=== PATIENT | female | born 1940 | race African-American/Black ===

== ENCOUNTER 2016-12-10 08:50 | Inpatient (IN) | payer MEDICARE ==
--- NOTE | ~2016-12-10 | HP ---
History And Physical [place] [id number] [facility] [place]. [address] NAME: EDWARD PADRON : 41 STATUS : ADM IN PAT#: [id number] AGE: 76 ADM/REG DATE : 12/10/16 MR#: [id number] REPORT SERV DATE: 12/10/16 DICTATED BY: TERI CALI DATE: 12/10/16 REPORT STATUS : Draft TRANSCRIBED BY: MODL DATE: 12/10/16 DATE OF ADMISSION: 12/10/2016 NEPHROLOGY ADMISSION NOTE CHIEF COMPLAINT: Shortness of breath. HISTORY OF PRESENT ILLNESS: The patient is a pleasant 76-year-old, female with past medical history of end-stage renal disease, on hemodialysis Saturday, Saturday, [facility] [address], who presents with worsening shortness of breath. Her son unfortunately recently , and she had several visitors over her house. She denies any change in her usual drinking habits over the weekend. She became progressively more short of breath and eventually called EMS. On arrival to the ER, blood pressure was 197/160 with a pulse rate of 123. Her chest x-rays showed pulmonary edema. She was placed on BiPAP and gas which showed mixed respiratory and metabolic acidosis. Her cardiac enzymes were negative. She denies fever, chest pain, or other systemic complaints at home. Her last dialysis was Saturday. Workup included labs which showed a white blood cell count 28,000 with a left shift. EKG showed no acute changes from previous. Presently, she is being seen on dialysis, comfortable on BiPAP with stable vital signs. The patient also states that she began having emesis at some point overnight. She had several episodes of previously ingested food. No blood or bile. PAST MEDICAL HISTORY: 1. End-stage renal disease, on hemodialysis Saturday, Saturday, Saturday at [address] via left upper extremity AV fistula. 2. Diabetes mellitus type 2. 3. Hypertension. 4. Coronary artery disease. PAST SURGICAL HISTORY: Left upper extremity AV fistula. HOME MEDICATIONS: 1. Norvasc 5 q. day. 2. Aspirin 81 q. day. 3. Bumex 2 q. day. 4. Calcium carbonate 6 tablets with meals. 5. Cinacalcet 30 q. day. 6. Neurontin 100 twice a day. 7. Levemir insulin 25 units subcu twice a day. 8. Isosorbide mononitrate 60 q. day. 9. Lisinopril 40 twice a day. 10.Lorazepam 0.5 q. day. 11.Lorazepam 1 mg q.h.s. 12.Temazepam 15 mg q.h.s. ALLERGIES: INCLUDE BENADRYL, LEVAQUIN, AND PENICILLIN. History And Physical [address] [address] NAME: EDWARD PADRON : 41 STATUS : ADM IN [facility]#: [id number] AGE: 76 ADM/REG DATE : 12/10/16 MR#: [id number] REPORT SERV DATE: 12/10/16 DICTATED BY: TERI CALI DATE: 12/10/16 REPORT STATUS : Draft TRANSCRIBED BY: JD DATE: 12/10/16 SOCIAL HISTORY: No tobacco, alcohol, or illicit drug use. FAMILY HISTORY: No history of renal disease. No other documented medical problems. REVIEW OF SYSTEMS: All systems reviewed, negative excluding those mentioned and highlighted in history of present illness. PHYSICAL EXAMINATION: VITAL SIGNS: Blood pressure 132/61, temperature 97.2, pulse 120s, respiratory rate 22, and oxygen saturation 100%. GENERAL: This is an acute on chronically ill elderly female resting on BiPAP in no overt distress. HEENT: Normocephalic, atraumatic. Oropharynx is clear. No exudate. NECK: Supple. No JVD. No thyromegaly. No carotid bruits. Trachea midline. No stridor. CARDIOVASCULAR: Tachycardic. S1, S2. No rubs or gallops. Point of maximal impulse nondisplaced. Respiratory: Coarse breath sounds anteriorly with a few rhonchi and wheezes with mild tachypnea. No accessory muscles in use. GASTROINTESTINAL: Abdomen is soft, nontender, nondistended. No hepatosplenomegaly appreciated. EXTREMITIES: No cyanosis or clubbing. She does have 1 to 2+ pretibial edema. LYMPHATICS: No supraclavicular, cervical, inguinal, or axillary adenopathy. SKIN: No rash or breakdown. Normal turgor. NEUROLOGIC: Cranial nerves 2 through 12 grossly intact. Motor sensory examinations within normal limits. LABORATORIES AND DIAGNOSTIC DATA: WBC 23.9, hemoglobin 11.6, hematocrit 35.5, platelets 210. Lactate 0.9. PH 7.21, pCO2 is 47, pO2 is 421 on 100%. Sodium 136, potassium 5.3, chloride 102, bicarb 21, BUN 70, creatinine 10.8, and glucose 232. Chest x-ray shows moderate volume overload or pulmonary edema. ASSESSMENT: 1. Hypoxemic respiratory failure secondary to pulmonary edema. 2. Leukocytosis with left shift ? reactive from #1 versus infectious process. 3. End-stage renal disease, on hemodialysis Saturday, Saturday, and Saturday. 4. Hypertension. 5. Diabetes mellitus type 2. 6. Metabolic and respiratory acidosis. 7. Nausea and vomiting. PLAN: 1. Hemodialysis today urgently for volume overload. I have seen her on dialysis and she is tolerating her treatment well at this time. 2. Wean off BiPAP and ask Pulmonary to see. History And Physical [address] [place]. [address] NAME: EDWARD PADRON : 41 STATUS : ADM IN [facility]#: [id number] AGE: 76 ADM/REG DATE : 12/10/16 MR#: [id number] REPORT SERV DATE: 12/10/16 DICTATED BY: TERI CALI DATE: 12/10/16 REPORT STATUS : Draft TRANSCRIBED BY: JD DATE: 12/10/16 3. Cultures and empiric antibiotics with marked white blood cell count. 4. Treat blood pressure with home medications and home insulin therapy. 5. We will follow in IMCU for now until off BiPAP. RUSS/JD Teri Cali M.D. / [id number] CC: Teri Cali M.D.
--- NOTE | ~2016-12-10 | CN ---
Consultation Report [facility] [address] [place]. [address] NAME: EDWARD PADRON : 41 STATUS : ADM IN [facility]#: [id number] AGE: 76 ADM/REG DATE : 12/10/16 MR#: [id number] REPORT SERV DATE: 12/10/16 DICTATED BY: CHRISTOPHER MARTINEZ DATE: 12/10/16 REPORT STATUS : Draft TRANSCRIBED BY: MODL DATE: 12/10/16 CONSULTATION DATE OF CONSULTATION: 12/10/2016 HISTORY OF PRESENT ILLNESS: A 76-year-old female whom we are consulted by the Nephrology group because of acute hypoxic respiratory failure. The patient has not missed dialysis, but she is a hemodialysis patient on Saturday, Saturday, and Saturday. Recently buried her son last week. She states she started getting short of breath over the past day and came to the hospital. She was found to be hypoxic with emergency room O2 saturation at 88% and blood pressure is really high at 197/159. The patient denies any fevers, but did have a dry cough, but no chest pain. She did vomit before she came to the hospital. She was put on 100% nonrebreather in the ER and converted that over to BiPAP. When I entered the room, she was on BiPAP 16/6 with FiO2 of 40%. Her O2 saturations were good. This was in IMCU after she had dialysis. In dialysis today, her pre and post weight difference was 2-1/2 kg and they took off a gross UF of 3.85 L. She states that her breathing is doing much better now and her blood pressure is much better as well. REVIEW OF SYSTEMS: No fevers or chills. No chest pain. No belly pain or diarrhea. She does have some mild leg swelling. PAST MEDICAL HISTORY: End-stage renal disease, type 2 diabetes, hypertension, and coronary artery disease. MEDICATIONS AT HOME: Reviewed. ALLERGIES: BENADRYL, LEVAQUIN, AND PENICILLIN. SOCIAL HISTORY: No tobacco, alcohol, or illicit drugs. FAMILY HISTORY: No history of kidney diseases. PHYSICAL EXAMINATION: VITAL SIGNS: Per nursing flow sheet. GENERAL: No acute distress. Alert. NEURO: GCS 15. HEENT: Normocephalic, atraumatic. BiPAP on. NECK: Trachea midline. HEART: Regular rate and rhythm. No murmurs. LUNGS: Coarse breath sounds bilaterally. No wheezes. No accessory muscle use. Bi-level setting 16/6 with FiO2 of 40% and O2 saturation 100%. Tidal volumes are estimated to be around 350 on the bi-level machine. GI: Soft, nontender, and nondistended. Consultation Report [place] [address] [place]. [address] NAME: EDWARD PADRON : 41 STATUS : ADM IN PAT#: [id number] AGE: 76 ADM/REG DATE : 12/10/16 MR#: [id number] REPORT SERV DATE: 12/10/16 DICTATED BY: CHRISTOPHER MARTINEZ DATE: 12/10/16 REPORT STATUS : Draft TRANSCRIBED BY: MODL DATE: 12/10/16 EXTREMITIES: +1 bilateral leg edema. SKIN: No obvious rash. LABORATORY DATA: Labs and radiology studies reviewed. ASSESSMENT AND PLAN: 1. Acute hypoxic respiratory failure. 2. Acute pulmonary edema. 3. End-stage renal disease. 4. Hypertensive urgency. The patient is status post dialysis today and took off 2-1/2 kg of weight. She is doing much better in terms of her blood pressure and her overall respiratory symptoms. We will trial her off BiPAP and just put on a nasal cannula to see if she tolerates this. She can use the BiPAP as needed for a goal O2 saturation of 92% to 94%. CEP/MODL Christopher Martinez DO / [id number] CC: Teri Dalal M.D.
[2016-12-10 08:38] LABS: ER CBC TAT 0 Hrs 08 Mins; HEMATOCRIT 35.5 % (36.0-48.0); HEMOGLOBIN 11.6 g/dL (12.0-16.0); MANUAL DIFF YES %; MEAN CORPUS HGB CONC 32.7 g/dL (32.0-36.0); MEAN CORPUSCULAR VOLUME 91.7 fL (80-100); MEAN PLATELET VOLUME 9.9 fL (9.2-13.0); PLATELET COUNT 210 10/3/uL (150-400); RBC DISTRIBUTION WIDTH 13.3 % (12.0-16.0); RED CELL COUNT 3.87 10/6/uL (4.0-5.6); WHITE BLOOD CELLS 23.9 10/3/uL (4.5-10.5)
[~2016-12-10 08:50] MED LIST: AMARYL2 PO; APRES25 PO; APRES50 PO; ARANESP60 IV; ASAB PO; ATV.5 PO; ATV1 PO; BUM2 PO; CALCIUM CARBONATE PO; CARD90 PO; CAT2 PO; CIP5 PO; COREG12 PO; COREG25 PO; COREG6 PO; CUBICIN500 MG IV; DEXILANT PO; DIOV80 PO; DIOVAN HCT320 MG/25 PO; DIOVAN320 MG PO; EXFORGE1 TA1 PO; EXFORGE1 TA3 PO; FLEX PO; GLUCOPHAGE1000 MG PO; HALF81 PO; HUMALOG SC; IMDUR30 PO; IMDUR60 PO; KLOR-CON20 MEQ PO; L20 PO; L40 PO; LANTUS FOR SC; LANTUS SC; LEVEMIR SC; LISINOPRIL40 MG PO; MAGOX4 PO; MELA3 PO; METHOC500B PO; MIRALAXPKT PO; MULTIPLE VIT PO; NEUR100 PO; NITROBID2 % TOP; NORCO1 TA1 PO; NORV10 PO; NORV5 PO; NOVOLOG SC; P10 PO; PCET PO; PREVALITE4 G1 PO; PRIN10 PO; PRIN20 PO; PROTONIX PO; REST15 PO; SENSIPAR30 M1 PO; SEPTRA DS1 TAB PO; T3 PO; TAMIFLU PO; TUMSROLL PO; TYLENOL ARTH650 MG PO; ULTRAM50 PO; V5 PO; VITD PO; VOLTAREN1 % TOP; ZESTRIL40 MG PO; ZITHROMAX500 MG PO; [UNRECOGNIZED DRUG - REMARK]
[2016-12-10 09:11] LABS: BAND NEUTROPHILS 3 %; ER DIFF TAT 0 Hrs 41 Mins; LYMPHOCYTES 4 %; LYMPHOCYTES ABSOLUTE (CALC) 0.96 10/3/uL (0.67-4.30); MONOCYTES 5 %; NEUTROPHILS ABSOLUTE (CALC) 21.75 10/3/uL (2.02-8.40); PLATELET ESTIMATE ADQ (ADEQUATE); SEGMENTED NEUTROPHIL (0) 88 %; TOTAL NUCLEATED CELLS 100
[2016-12-10 09:14] LABS: RBC MORPHOLOGY NORM (NORMAL)
[2016-12-10 09:26] LABS: BUN (BLOOD UREA NITROGEN) 70 MG/DL (6-23); CALCIUM, SERUM 8.3 MG/DL (8.5-10.4); CHEST PAIN PROFILE TAT 0 Hrs 15 Mins; CHLORIDE, SERUM 102 MMOL/L (96-112); CO2 (CARBON DIOXIDE) 21 MMOL/L (24-34); GFR AFRICAN AMERICAN 4 ML/MIN (>=60); GFR NON AFRICAN AMERICAN 3 ML/MIN (>=60); GLUCOSE, SERUM 232 MG/DL (60-99); POTASSIUM, SERUM 5.3 MMOL/L (3.5-5.3); SODIUM, SERUM 136 MMOL/L (135-148); TROPONIN I 0.02 NG/ML (<0.05)
[2016-12-10] MEDS ORDERED: NORV5 PO (09:31)
[2016-12-10] MEDS ORDERED: ATV1 PO (09:33)
[2016-12-10] MEDS ORDERED: DIOVAN320 MG PO (09:35)
[2016-12-10] MEDS ORDERED: LEVEMIR SC (09:36)
[2016-12-10] MEDS ORDERED: IMDUR60 PO (09:36)
[2016-12-10] MEDS ORDERED: REST15 PO (09:37)
[2016-12-10 10:24] LABS: ALLENS TEST Pos; CARBOXYHEMOGLOBIN 0.4 % (0-3); HCO3 (ACTUAL BICARBONATE) 18.5 MEQ/L (23-27); HEMOBLOGIN CONTENT 11.9 G/DL (12-16); INSTRUMENT SERIAL # 8087; METHEMOGLOBIN 0.2 % (0-3); O2 CONTENT 17.7 VOL% (18-24); OPERATOR ID 14335; PCO2 (CO2 TENSION) 47 MMHG (35-45); PO2 (O2 TENSION) 421 MMHG (79-93); SAMPLE Arterial; pH 7.21 (7.37-7.43)
[2016-12-10 12:48] LABS: INTERNATIONAL NORMAL RATI 1.1 UNITS (-); PROTIME (NOT ORD) 14.3 SEC (12.0-14.5)
[2016-12-10 12:49] LABS: PARTIAL THROMBO TIME 26.3 SEC (22.5-37.2)
[2016-12-10 14:54] LABS: PROCALCITONIN 0.28 ng/mL (<0.5)
[2016-12-11 04:32] LABS: BASOPHILS 0.2 %; BASOPHILS ABSOLUTE 0.02 10/3/uL (0.0-0.16); EOSINOPHILS ABSOLUTE 0.13 10/3/uL (0.0-0.53); HEMATOCRIT 31.8 % (36.0-48.0); HEMOGLOBIN 10.2 g/dL (12.0-16.0); IMMATURE GRANULOCYTES 0.3 %; IMMATURE GRANULOCYTES ABSOLUTE 0.04 10/3/uL (0.0-0.11); LYMPHOCYTES 12.8 %; LYMPHOCYTES ABSOLUTE 1.62 10/3/uL (0.67-4.30); MANUAL DIFF NO %; MEAN CORPUS HGB CONC 32.1 g/dL (32.0-36.0); MEAN CORPUSCULAR HEMOGLOB 29.1 pg (26.0-34.0); MEAN CORPUSCULAR VOLUME 90.9 fL (80-100); MONOCYTES 5.9 %; MONOCYTES ABSOLUTE 0.74 10/3/uL (0.21-1.20); NEUTROPHILS 79.8 %; NEUTROPHILS ABSOLUTE 10.07 10/3/uL (2.02-8.40); PLATELET COUNT 208 10/3/uL (150-400); RBC DISTRIBUTION WIDTH 13.7 % (12.0-16.0); WHITE BLOOD CELLS 12.6 10/3/uL (4.5-10.5)
[2016-12-11 04:50] LABS: ALBUMIN 2.9 G/DL (3.5-5.0); CALCIUM, SERUM 8.8 MG/DL (8.5-10.4); CHLORIDE, SERUM 101 MMOL/L (96-112); POTASSIUM, SERUM 4.6 MMOL/L (3.5-5.3); SODIUM, SERUM 139 MMOL/L (135-148); VANCOMYCIN TROUGH 17.8 MCG/ML (10.0-20.0)
[2016-12-11 04:54] LABS: BUN (BLOOD UREA NITROGEN) 43 MG/DL (6-23); CO2 (CARBON DIOXIDE) 26 MMOL/L (24-34); CREATININE 8.09 MG/DL (0.55-1.02); GFR AFRICAN AMERICAN 5 ML/MIN (>=60); GFR NON AFRICAN AMERICAN 4 ML/MIN (>=60); GLUCOSE, SERUM 77 MG/DL (60-99); PHOSPHORUS, SERUM 5.4 MG/DL (2.5-4.5)
[2016-12-12 05:27] LABS: BASOPHILS 0.5 %; BASOPHILS ABSOLUTE 0.05 10/3/uL (0.0-0.16); EOSINOPHILS 1.9 %; HEMOGLOBIN 10.3 g/dL (12.0-16.0); IMMATURE GRANULOCYTES 0.4 %; IMMATURE GRANULOCYTES ABSOLUTE 0.04 10/3/uL (0.0-0.11); LYMPHOCYTES 22.4 %; MANUAL DIFF NO %; MEAN CORPUS HGB CONC 31.2 g/dL (32.0-36.0); MEAN CORPUSCULAR HEMOGLOB 29.6 pg (26.0-34.0); MEAN CORPUSCULAR VOLUME 94.8 fL (80-100); MEAN PLATELET VOLUME 10.1 fL (9.2-13.0); NEUTROPHILS 61.8 %; NEUTROPHILS ABSOLUTE 6.64 10/3/uL (2.02-8.40); PLATELET COUNT 210 10/3/uL (150-400); RBC DISTRIBUTION WIDTH 14.1 % (12.0-16.0); RED CELL COUNT 3.48 10/6/uL (4.0-5.6); WHITE BLOOD CELLS 10.7 10/3/uL (4.5-10.5)
[2016-12-12 05:50] LABS: ALBUMIN 3.1 G/DL (3.5-5.0); BUN (BLOOD UREA NITROGEN) 28 MG/DL (6-23); CALCIUM, SERUM 8.6 MG/DL (8.5-10.4); CHLORIDE, SERUM 103 MMOL/L (96-112); CO2 (CARBON DIOXIDE) 25 MMOL/L (24-34); CREATININE 6.64 MG/DL (0.55-1.02); GFR AFRICAN AMERICAN 6 ML/MIN (>=60); GFR NON AFRICAN AMERICAN 6 ML/MIN (>=60); GLUCOSE, SERUM 63 MG/DL (60-99); PHOSPHORUS, SERUM 3.7 MG/DL (2.5-4.5); POTASSIUM, SERUM 4.6 MMOL/L (3.5-5.3); SODIUM, SERUM 137 MMOL/L (135-148)
[2016-12-12] MEDS ORDERED: NORCO1 TA1 PO (15:11)
[2017-01-21] MEDS ORDERED: *UNABLE1 (06:10)
== END 2016-12-12 16:30 | disposition home or self-care (01) | DRG 189 ==
LOC: ER 08:50 → IMCU 09:56
PROVIDERS: Emergency Medicine; Internal Medicine Nephrology
PROC: 5A1D60Z (ICD-10-PCS; principal; 2016-12-10)
DX: J96.01 Acute respiratory failure with hypoxia (principal); J81.0 Acute pulmonary edema; E87.2 Acidosis; N18.6 End stage renal disease; I12.0 Hypertensive chronic kidney disease with stage 5 chronic kidney disease or end stage renal disease; E11.9 Type 2 diabetes mellitus without complications; Z99.2 Dependence on renal dialysis
CPT/HCPCS: 36600; 71010; 80048; 80069; 80202; 82805; 82962; 83605; 83735; 84145; 84484; 85025; 85610; 85730; 87040; 87641; 93005; 94640; 94660; 96374; 96375; 99291; A9270-GY; C9113; G0257; J0360; J3370; P9047

== ENCOUNTER 2016-12-31 06:35 | Inpatient (IN) | payer MEDICARE ==
--- NOTE | ~2016-12-31 | HP ---
History And Physical [place] [id number] [facility] [place]. [address] NAME: EDWARD PADRON : 41 STATUS : ADM IN [facility]#: [id number] AGE: 76 ADM/REG DATE : 12/31/16 MR#: [id number] REPORT SERV DATE: 12/31/16 DICTATED BY: PATRICK POST DATE: 12/31/16 REPORT STATUS : Draft TRANSCRIBED BY: MODFish DATE: 12/31/16 DATE OF ADMISSION: 12/31/2016 CHIEF COMPLAINT: Shortness of breath. HISTORY OF PRESENT ILLNESS: Ms. Padron is a 76-year-old female, who chronically dialyzes Saturday, Saturday, Saturday at highway [facility] by left upper extremity AV fistula. She was recently hospitalized in November of 2016 for similar symptoms and was noted to have an elevated white count at that time of 28,000. Today, her white count is 24.8. She denies any fever, chills, or cough and states she has been depressed with some decreased appetite since her son . She has been compliant with dialysis and indicates no change in her fluid consumption. She denies any chest pain. PAST MEDICAL HISTORY: End-stage renal disease, dialyzing Saturday, Saturday, Saturday at highway by left upper extremity AV fistula; anemia; recurrent leukocytosis; history of UTIs; hypertension; type 2 diabetes mellitus; osteoarthritis; spinal stenosis; obstructive sleep apnea; chronic diastolic congestive heart failure; colon polyps; dyslipidemia; depression; remote influenza A. SOCIAL HISTORY: The patient is . No use of alcohol, tobacco, or illicit drugs. Her son recently . FAMILY HISTORY: Mother in 90s of unknown cause and father of unknown cause, but history is positive for hypertension. No end-stage renal disease or cardiac disease per patient. ALLERGIES: CODEINE, BENADRYL, PENICILLIN, MORPHINE, NONSTEROIDAL ANTIINFLAMMATORY DRUGS, CELEBREX, AND HYDROCODONE NOTED ON THE CHART. HOME MEDICATIONS: Norvasc, aspirin, Bumex, calcium carbonate, cinacalcet, Neurontin, Levemir insulin, isosorbide mononitrate, lisinopril, lorazepam, and temazepam. REVIEW OF SYSTEMS: HEENT: No change in visual acuity. No epistaxis. No otic infection. No pharyngitis. PULMONARY: No shortness of breath. Has had some intermittent cough, nonproductive. No hemoptysis. No wheezing. CARDIAC: No chest pain. Has noted some intermittent lower extremity edema. GI: One episode of nausea and vomiting. No hematemesis. No melena. : Voids minimally. No dysuria. MUSCULOSKELETAL: Pain in back. INTEGUMENT: No rash. No itching. NEUROLOGIC: No lateralizing weakness or seizure disorder. Remainder of 12-point review of systems is negative. PHYSICAL EXAMINATION: History And Physical [address] [place]. [address] NAME: EDWARD PADRON : 41 STATUS : ADM IN [facility]#: [id number] AGE: 76 ADM/REG DATE : 12/31/16 MR#: [id number] REPORT SERV DATE: 12/31/16 DICTATED BY: PATRICK POST DATE: 12/31/16 REPORT STATUS : Draft TRANSCRIBED BY: MODL DATE: 12/31/16 GENERAL: Elderly female, alert, pleasant, on venturi mask. VITAL SIGNS: Blood pressure 152/67 following admission pressure of 245/102; temp 98.5; pulse 100; respiratory rate 18, after presenting with respiratory rate of 30. HEENT: Eyes, no scleral icterus. Pupils equal and reactive to light. Extraocular movement intact. Nares patent. No discharge. Throat, no injection. Mucous membranes moist. NECK: No thyromegaly, masses, or bruits. CHEST/LUNGS: Bilateral crackles. No rhonchi. No wheezing. CARDIAC: Regular rate and rhythm. 1/6 systolic ejection murmur. No gallop. No rub. ABDOMEN: Supple. Normoactive bowel sounds. Nontender. No hepatosplenomegaly. BREAST/PELVIC/RECTAL: Not performed. EXTREMITIES: 1 to 2+ edema. No calf tenderness. DERMIS: No rash. No skin lesions. NEUROLOGIC: Cranial nerves intact. No lateralizing weakness. MUSCULOSKELETAL: No deformity. IMPRESSION: 1. Hypercapnic respiratory failure with pCO2 of 56, pH of 7.27. 2. Pulmonary edema/volume overload. 3. End-stage renal disease, dialyzing Saturday, Saturday, Saturday at [address] by left upper extremity AV fistula. 4. Anemia. 5. Leukocytosis possible stress related versus infection. 6. Accelerated hypertension. 7. Type 2 diabetes mellitus. 8. Spinal stenosis with underlying osteoarthritis. 9. Obstructive sleep apnea. 10.Chronic diastolic congestive heart failure. 11.History of colon polyps. 12.History of urinary tract infections. 13.Dyslipidemia. 14.Depression. PLAN: 1. Antibiotics after culture. 2. Labs. 3. Urgent dialysis. CG/JD Patrick Post M.D. / [id number] CC: History And Physical [address] [address] NAME: EDWARD PADRON : 41 STATUS : ADM IN [facility]#: [id number] AGE: 76 ADM/REG DATE : 12/31/16 MR#: [id number] REPORT SERV DATE: 12/31/16 DICTATED BY: PATRICK POST DATE: 12/31/16 REPORT STATUS : Draft TRANSCRIBED BY: SIMONEL DATE: 12/31/16 Rodney Nelson M.D.
--- NOTE | ~2016-12-31 | DS ---
Discharge Summary [facility] [address] [place]. [address] NAME: EDWARD PADRON : 42 STATUS : DIS IN PAT#: [id number] AGE: 76 ADM/REG DATE : 12/31/16 MR#: [id number] REPORT SERV DATE: 01/03/17 DICTATED BY: PATRICK POST DATE: 01/02/17 REPORT STATUS : Draft TRANSCRIBED BY: MODL DATE: 01/02/17 ADMISSION DATE: 12/31/2016 DISCHARGE DATE: 01/02/2017 INDICATION FOR ADMISSION: Shortness of breath. DISCHARGE DIAGNOSES: 1. Hypercapnic respiratory failure with pCO2 of 56, pH of 7.27. 2. Pulmonary edema/volume overload. 3. End-stage renal disease, dialyzing Saturday, Saturday, and Saturday at [address] by left upper extremity arteriovenous fistula. 4. Anemia. 5. Leukocytosis, related to stress. 6. Accelerated hypertension. 7. Type 2 diabetes mellitus. 8. Spinal stenosis with underlying osteoarthritis. 9. Obstructive sleep apnea. 10.Chronic diastolic congestive heart failure. 11.History of colon polyps. 12.History of urinary tract infection. 13.Dyslipidemia. 14.Depression. HOSPITAL COURSE: Ms Padron is a 76-year-old female, who chronically dialyzes Saturday, Saturday, and Saturday at [address] by left upper extremity AV fistula. She was hospitalized in November for similar symptoms of shortness of breath with elevated white count of 28,000. Her current white count was 24,000 and there was no evidence of pneumonia on chest x-ray. No fever during her hospitalization and white count fell to 8400. She had noted no fever, chills, or cough, but had been depressed due to recent of her son. It was felt that she needs an adjustment in her dry weight due to decreased appetite. The patient underwent cultures which grew nothing. She was placed on antibiotics which were discontinued. She remained afebrile during her hospitalization. Her leukocytosis was felt secondary to stress. She underwent dialysis on 12/31/2016 with removal of approximately 3.5 kg, and subsequently, on 01/02/2017 with removal of 4.1 Kg. Her dry weight was decreased to 81.6 kg. Her breathing was stable after her initial dialysis. She was felt stable for release on 01/02/2017. DISCHARGE MEDICATIONS: Amlodipine 5 mg daily, enteric-coated aspirin 81 mg daily, Bumex 2 mg daily, calcium carbonate 500 mg four tabs with meals, Neurontin 100 mg twice daily, Levemir insulin 20 units subcu q.a.m., Imdur 60 mg p.o. daily, lisinopril 40 mg p.o. twice daily, Sensipar 30 mg p.o. daily, Ativan 0.5 mg p.o. daily p.r.n. and 1 mg q.h.s. (at bedtime), Restoril 15 mg p.o. q.h.s., hydrocodone 5/325 mg p.o. q.6 h. p.r.n. May need to consider decreasing Ativan or Restoril, if she continues to have problems with breathing. Discharge Summary [place] [id number] [facility] [place]. [address] NAME: EDWARD PADRON : 42 STATUS : DIS IN PAT#: [id number] AGE: 76 ADM/REG DATE : 12/31/16 MR#: [id number] REPORT SERV DATE: 01/03/17 DICTATED BY: PATRICK POST DATE: 01/02/17 REPORT STATUS : Draft TRANSCRIBED BY: JD DATE: 01/02/17 DIET: Will be renal diet, 1500 mL fluid restriction per day, with 2000 calorie ADA restriction. ACTIVITY: Activity will be resumed per home regimen. FOLLOWUP: On dialysis as schedules, with new dry weight of 81.6 kg. CG/SIMONEL Patrick Post M.D. / [id number] CC: Rodney Nelson M.D.
[2016-12-31 04:51] LABS: BE (BASE EXCESS) -2.5 MEQ/L (0 +/- 2.5); BIPAP 20/5 cm.H2O; CARBOXYHEMOGLOBIN 1.2 % (0-3); HEMOBLOGIN CONTENT 11.7 G/DL (12-16); INSTRUMENT SERIAL # 8087; METHEMOGLOBIN 0.1 % (0-3); O2 CONTENT 16.2 VOL% (18-24); PCO2 (CO2 TENSION) 56 MMHG (35-45); PO2 (O2 TENSION) 141 MMHG (79-93); SAMPLE Arterial; pH 7.27 (7.37-7.43)
[2016-12-31 05:33] LABS: HEMATOCRIT 34.7 % (36.0-48.0); HEMOGLOBIN 11.2 g/dL (12.0-16.0); MEAN CORPUS HGB CONC 32.3 g/dL (32.0-36.0); MEAN CORPUSCULAR HEMOGLOB 29.6 pg (26.0-34.0); PLATELET COUNT 230 10/3/uL (150-400); RBC DISTRIBUTION WIDTH 13.8 % (12.0-16.0); RED CELL COUNT 3.78 10/6/uL (4.0-5.6)
[2016-12-31 05:37] LABS: ER CBC TAT 0 Hrs 08 Mins; MANUAL DIFF YES %; MEAN CORPUSCULAR VOLUME 91.8 fL (80-100); WHITE BLOOD CELLS 24.8 10/3/uL (4.5-10.5)
[2016-12-31 05:51] LABS: CALCIUM, SERUM 8.6 MG/DL (8.5-10.4); CHEST PAIN PROFILE TAT 0 Hrs 22 Mins; CHLORIDE, SERUM 102 MMOL/L (96-112); CO2 (CARBON DIOXIDE) 25 MMOL/L (24-34); POTASSIUM, SERUM 5.2 MMOL/L (3.5-5.3); SODIUM, SERUM 139 MMOL/L (135-148); TROPONIN I <0.02 NG/ML (<0.05)
[2016-12-31 05:52] LABS: BUN (BLOOD UREA NITROGEN) 57 MG/DL (6-23); GFR AFRICAN AMERICAN 3 ML/MIN (>=60); GFR NON AFRICAN AMERICAN 3 ML/MIN (>=60); GLUCOSE, SERUM 240 MG/DL (60-99)
[2016-12-31 05:57] LABS: BASOPHILS 1 %; BASOPHILS ABSOLUTE (CALC) 0.25 10/3/uL (0.0-0.16); ER DIFF TAT 0 Hrs 28 Mins; LYMPHOCYTES 5 %; LYMPHOCYTES ABSOLUTE (CALC) 1.24 10/3/uL (0.67-4.30); MONOCYTES 2 %; NEUTROPHILS ABSOLUTE (CALC) 22.82 10/3/uL (2.02-8.40); PLATELET ESTIMATE ADQ (ADEQUATE); RBC MORPHOLOGY NORM (NORMAL); SEGMENTED NEUTROPHIL (0) 92 %; TOTAL NUCLEATED CELLS 100
[2016-12-31 06:32] LABS: INTERNATIONAL NORMAL RATI 1.1 UNITS (-); PROTIME (NOT ORD) 13.8 SEC (12.0-14.5)
[2016-12-31 06:42] LABS: PARTIAL THROMBO TIME 21.3 SEC (22.5-37.2)
[2016-12-31 06:58] LABS: PROCALCITONIN 0.43 ng/mL (<0.5)
[2017-01-02 08:43] LABS: BASOPHILS 0.2 %; BASOPHILS ABSOLUTE 0.02 10/3/uL (0.0-0.16); EOSINOPHILS 3.3 %; EOSINOPHILS ABSOLUTE 0.29 10/3/uL (0.0-0.53); HEMOGLOBIN 9.3 g/dL (12.0-16.0); IMMATURE GRANULOCYTES 0.2 %; IMMATURE GRANULOCYTES ABSOLUTE 0.02 10/3/uL (0.0-0.11); LYMPHOCYTES 22.5 %; LYMPHOCYTES ABSOLUTE 1.98 10/3/uL (0.67-4.30); MEAN CORPUSCULAR HEMOGLOB 29.6 pg (26.0-34.0); MEAN CORPUSCULAR VOLUME 92.7 fL (80-100); MEAN PLATELET VOLUME 9.6 fL (9.2-13.0); MONOCYTES 7.9 %; NEUTROPHILS 65.9 %; PLATELET COUNT 195 10/3/uL (150-400); RBC DISTRIBUTION WIDTH 13.8 % (12.0-16.0); RED CELL COUNT 3.14 10/6/uL (4.0-5.6)
[2017-01-02 08:46] LABS: WHITE BLOOD CELLS 8.8 10/3/uL (4.5-10.5)
[2017-01-02 08:47] LABS: HEMATOCRIT 29.1 % (36.0-48.0); MANUAL DIFF NO %
[2017-01-02 08:56] LABS: ALBUMIN 2.8 G/DL (3.5-5.0); CALCIUM, SERUM 8.9 MG/DL (8.5-10.4); CHLORIDE, SERUM 101 MMOL/L (96-112); CO2 (CARBON DIOXIDE) 26 MMOL/L (24-34); PHOSPHORUS, SERUM 4.6 MG/DL (2.5-4.5); POTASSIUM, SERUM 4.7 MMOL/L (3.5-5.3); SODIUM, SERUM 138 MMOL/L (135-148)
[2017-01-02 08:57] LABS: BUN (BLOOD UREA NITROGEN) 40 MG/DL (6-23); CREATININE 9.72 MG/DL (0.55-1.02); GFR AFRICAN AMERICAN 4 ML/MIN (>=60); GFR NON AFRICAN AMERICAN 4 ML/MIN (>=60); GLUCOSE, SERUM 89 MG/DL (60-99)
[2017-01-21] MEDS ORDERED: *UNABLE1 (06:10)
== END 2017-01-02 17:51 | disposition home or self-care (01) | DRG 291 ==
LOC: ER 06:35 → MIC 06:40 → 2SO 12:37 → MIC 13:19 → 2SO 14:16
PROVIDERS: Nurse Practitioner; Specialist
PROC: 5A1D60Z (ICD-10-PCS; principal; 2016-12-31)
PROC: 5A09457 Assistance with Respiratory Ventilation, 24-96 Consecutive Hours, Continuous Positive Airway Pressure (ICD-10-PCS; 2016-12-31)
DX: I13.2 Hypertensive heart and chronic kidney disease with heart failure and with stage 5 chronic kidney disease, or end stage renal disease (principal); J96.92 Respiratory failure, unspecified with hypercapnia; N18.6 End stage renal disease; I50.32 Chronic diastolic (congestive) heart failure; E11.22 Type 2 diabetes mellitus with diabetic chronic kidney disease; M19.90 Unspecified osteoarthritis, unspecified site; M48.00 Spinal stenosis, site unspecified; G47.33 Obstructive sleep apnea (adult) (pediatric); F32.9 Major depressive disorder, single episode, unspecified; D64.9 Anemia, unspecified; D72.829 Elevated white blood cell count, unspecified; E78.5 Hyperlipidemia, unspecified; Z86.010 Personal history of colon polyps; Z99.2 Dependence on renal dialysis; Z88.5 Allergy status to narcotic agent; Z88.0 Allergy status to penicillin; Z88.8 Allergy status to other drugs, medicaments and biological substances
CPT/HCPCS: 36600; 71010; 80048; 80069; 82805; 82962; 83735; 83880; 84145; 84484; 85025; 85610; 85730; 87040; 87641; 93005; 94660; 96374; 96375; 99291; A9270-GY; G0257; J0360; J2405; J3370; P9047

== ENCOUNTER 2017-01-21 07:19 | Inpatient (IN) | payer MEDICARE ==
--- NOTE | ~2017-01-21 | CN ---
Consultation Report [facility] [address] [place]. [address] NAME: EDWARD PADRON : 42 STATUS : ADM IN PAT#: [id number] AGE: 76 ADM/REG DATE : 01/21/17 MR#: [id number] REPORT SERV DATE: 01/21/17 DICTATED BY: DATE: REPORT STATUS : Draft TRANSCRIBED BY: MODL DATE: 01/21/17 NEUROLOGY CONSULTATION DATE OF CONSULTATION: 01/21/2017 REASON FOR CONSULT: Encephalopathy post cardiac arrest. HISTORY OF PRESENT ILLNESS: This is a 76-year-old female who presented to [facility] as an ofx-ki-[id number] arrest. The patient was at home, was found to be unresponsive. EMS was called. Upon EMS arrival, the patient was noted to be in asystole with subsequent return of spontaneous circulation after resuscitation. Down time is apparently 40 minutes per nursing staff reports. The patient does not have any subsequent asystole or arrhythmia. The patient was placed on hypothermia protocol upon hospital arrival and is currently on rocuronium and fentanyl drip. The patient demonstrated no spontaneous movement of the extremities and demonstrated no jerking or myoclonus like activities. Prior to the hospitalization, the patient does have recent hospital stay, admitted on 12/31/2016, secondary to shortness of breath, but otherwise, was not noted to have any fevers, chills, nausea, or vomiting. PAST MEDICAL HISTORY: Significant for end-stage renal disease, dialyzes Saturday, Saturday, and Saturday as well as left upper extremity AV fistula; anemia; leukocytosis; the patient does have a history of urinary tract infection; hypertension; type 2 diabetes; osteoarthritis; spinal stenosis; obstructive sleep apnea; chronic diastolic congestive heart failure; colon polyps; dyslipidemia; depression as well as previous history of flu infection. The patient was noted to have recent hospital stay secondary to dyspnea. SOCIAL HISTORY: Denies tobacco, alcohol, or recreational drug usage per medical record. FAMILY HISTORY: Significant for hypertension. ALLERGIES: THE PATIENT WAS NOTED TO HAVE EXTENSIVE LIST OF ALLERGIES INCLUDING CODEINE, BENADRYL, PENICILLIN, MORPHINE, NONSTEROIDAL ANTI-INFLAMMATORY MEDICATIONS, HYDROCODONE WELL CELEBREX. MEDICATIONS: The patient's current hospital medications consist of fentanyl, rocuronium, and nicardipine. The patient's home medications consist of amlodipine; aspirin; Bumex; calcium; Coreg; Sensipar; diltiazem; gabapentin; insulin; isosorbide mononitrate; lisinopril; lorazepam; Restoril; and Diovan. REVIEW OF SYSTEMS: Unable to be obtained secondary to the patient's current mental status. Consultation Report [place] [id number] [place]. [address] NAME: EDWARD PADRON : 42 STATUS : ADM IN PAT#: [id number] AGE: 76 ADM/REG DATE : 01/21/17 MR#: [id number] REPORT SERV DATE: 01/21/17 DICTATED BY: DATE: REPORT STATUS : Draft TRANSCRIBED BY: MODL DATE: 01/21/17 PHYSICAL EXAMINATION: VITAL SIGNS: At the time of evaluation, the patient overnight was noted to have vital signs with T-max of 91.22, heart rate of 72 to 84, respirations of 11 to 12, and blood pressure of 145 to 228 over 57 to 100. GENERAL: The patient is well developed, well nourished, in no acute distress. CARDIOVASCULAR: Regular rate and rhythm. No carotid bruits were otherwise auscultated. PULMONARY: Examination was clear to auscultation bilaterally. NEUROLOGICAL: Generally, the patient is comatose as well as paralyzed. No spontaneous eye opening. No spontaneous movement was noted and nonverbal as well as not following commands. The patient is intubated at the time of evaluation. At the time of evaluation, the patient was also on fentanyl as well as rocuronium. Cranial nerves 2 through 12, the patient was noted to have pinpoint pupil with minimal reactivity. At the time of evaluation, no horizontal eye movement was seen. No corneal reflex. No [id number] response. At the time of evaluation, the patient does not demonstrate any grimace to noxious stimulation in bilateral jaw and does not demonstrate any grimace to noxious stimulation in bilateral upper and lower extremity with the patient demonstrated no grimace, withdrawal or posturing to bilateral upper and lower extremity. The patient demonstrated no visible myoclonus jerking with seizure-like activity at the time of evaluation. Deep tendon reflex was absent. Plantar reflex was also absent at the time of evaluation. Gait and cerebellar examination is unable to be performed secondary to the patient's mental status. LABORATORY DATA: Laboratory study, the patient was noted to have the ABG, pH of 7.39, pCO2 of 33, PO2 of 532, bicarb of 19.3, and O2 saturation of 99.8 and no neuro imaging was otherwise obtained. IMPRESSION: Encephalopathy, concern for possible anoxia-induced encephalopathy. The patient is currently undergoing hypothermia protocol and is on fentanyl and rocuronium. We are recommending discontinuing muscle paralytics as well as fentanyl or any other sedation after hypothermia protocol. We will obtain CT scan of the brain without contrast on 01/22/2017, after the patient was re-warmed. We will also obtain EEG on 01/22/2017, after the patient is rewarmed. We will monitor for any changes in neurological or mental status. RECOMMENDATION: 1. Continue rocuronium and fentanyl for now. 2. Continue hypothermia. 3. CT scan of the brain without contrast after rewarming on 01/22/2017. 4. EEG on 01/22/2017, after rewarming. 5. We will discontinue rocuronium and fentanyl as well as any other sedations after the hypothermia protocol. [facility]/JD Consultation Report [address] [place]. [address] NAME: EDWARD PADRON : 42 STATUS : ADM IN [facility]#: [id number] AGE: 76 ADM/REG DATE : 01/21/17 MR#: [id number] REPORT SERV DATE: 01/21/17 DICTATED BY: DATE: REPORT STATUS : Draft TRANSCRIBED BY: MODL DATE: 01/21/17 Ray Will MD / [id number] CC: Cristino Dowling MD
--- NOTE | ~2017-01-21 | EEG ---
Electroencephalogram [id number] [place]. [address] NAME: EDWARD PADRON : 42 STATUS : ADM IN PAT#: [id number] AGE: 76 ADM/REG DATE : 01/21/17 MR#: [id number] REPORT SERV DATE: 01/25/17 DICTATED BY: SKY COLLINS DATE: 01/25/17 REPORT STATUS : Draft TRANSCRIBED BY: MODL DATE: 01/25/17 ELECTROENCEPHALOGRAPHY REPORT INTERPRETING PHYSICIAN: Sky Collins M.D. EEG NUMBER: [id number]. AGE: 76. LOCATION OF THE PATIENT: MICU bed 5. REASON FOR EEG: Status post cardiopulmonary arrest, unresponsiveness. 23 surface electrodes, 10-20 international placement was used. Photic stimulation was performed. Video monitoring was utilized. The patient was noted to be unresponsive throughout the recording. No response to painful or verbal stimuli seen during the EEG. The background activity consisted of extremely low voltage of microvolts per millimeter noted on increased magnification, continuous 5-6 cycles per second activity was present within normal amplification 7 microvolts per millimeter. No discernible cerebral activity was seen. Large amount of muscle artifact was noted initially. The muscle activity was decreased with the use of pancuronium. Despite elimination of the background muscle artifact, no additional activity was observed. The patient's eyes remained open throughout this study. No paroxysmal or epileptiform activity was seen. The patient's monitoring analyst showed borderline sinus tachycardia, heart rate of approximately 100 beats per minute. Photic stimulation did not produce changes or additional abnormalities. IMPRESSION: MARKEDLY ABNORMAL EEG CHARACTERIZED BY THE PRESENCE OF SEVERE DEPRESSION OF CEREBRAL ACTIVITY. NO EVIDENCE OF PAROXYSMAL EPILEPTIFORM ACTIVITY WAS SEEN. NO SIGNIFICANT ASYMMETRY OF HER ACTIVITY WAS NOTED. THIS EEG IS COMPATIBLE WITH PRESENCE OF SEVERE ANOXIC ENCEPHALOPATHY. CLINICAL CORRELATION IS RECOMMENDED. EL/JD Sky Collins MD / [id number] CC: Cristino Dowling MD
--- NOTE | ~2017-01-21 | CN ---
Consultation Report [facility] [address] [place]. [address] NAME: EDWARD PADRON : 42 STATUS : ADM IN PAT#: [id number] AGE: 76 ADM/REG DATE : 01/21/17 MR#: [id number] REPORT SERV DATE: 01/21/17 DICTATED BY: MONIKA UGALDE IV DATE: 01/21/17 REPORT STATUS : Draft TRANSCRIBED BY: MODL DATE: 01/21/17 CRITICAL CARE CONSULT DATE OF CONSULTATION: 01/21/2017 REASON FOR REQUEST: Status post respiratory arrest with hypothermia protocol for anoxic brain injury. HISTORY OF PRESENT ILLNESS: History was obtained from the records and from the family who are poor historians. Ms. Padron is a 76-year-old female with a history of end-stage renal disease, on dialysis, diabetes mellitus, hypertension, coronary artery disease, obstructive sleep apnea, noncompliant with CPAP therapy, who was admitted from [facility], status post respiratory arrest with prolonged resuscitation. The patient has had several recent hospitalizations for pulmonary edema. The family states that she has not missed any dialysis. They are reportedly able to get her down to dry weight. She is not compliant by history with a renal diet, eating baloney sandwiches and drinking lots of juice. She awoke her son at 4 o'clock this morning saying that she could not get her breath. The son contacted 911. The patient ultimately went into respiratory arrest, which the son states lasted 10 minutes with no response and no respiratory efforts. He did not check a pulse. He did not perform CPR. When the EMS arrived, the patient was reportedly in cardiopulmonary arrest for which she was resuscitated including intubation. The total time per the emergency room at [facility] was less than 60 minutes; however, we do not have code records at this time. The patient was, per request of Nephrology, brought to [facility]. The patient had no history of fever, chills, sweats, cough, sputum production, or hemoptysis. There were no complaints of chest pain. The son had noted no increasing peripheral edema and no change of weight. There was no report of aspiration. She is not on supplemental oxygen at home nor is she on bronchodilator medication. She has been diagnosed with obstructive sleep apnea, however, was intolerant of CPAP therapy. Currently, the patient is unresponsive on the mechanical ventilator. PULMONARY HISTORY: Remarkable for no history of childhood asthma or known adult obstructive lung disease. She has had pneumonia in the past. She is a lifelong nonsmoker though had secondary smoke exposure from her son who smokes outside. 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 They think she refuses immunizations. PAST MEDICAL HISTORY: Remarkable for: 1. End-stage renal disease, on dialysis. 2. Diabetes mellitus. 3. Hypertension. 4. Coronary artery disease. 5. Obstructive sleep apnea, noncompliant with CPAP. SURGERIES: Upper lobe fistula and cataract surgery. Consultation Report [facility] [address] [place]. [address] NAME: EDWARD PADRON : 41 STATUS : ADM IN [facility]#: [id number] AGE: 76 ADM/REG DATE : 01/21/17 MR#: [id number] REPORT SERV DATE: 01/21/17 DICTATED BY: MONIKA UGALDE IV DATE: 01/21/17 REPORT STATUS : Draft TRANSCRIBED BY: JD DATE: 01/21/17 HOME MEDICATIONS: I do not have that listed yet, however during her last hospitalization, Norvasc 5 mg daily, aspirin 81 mg daily, Bumex 2 mg daily, calcium carbonate 6 tabs with meals, Neurontin 100 mg twice a day, Levemir 25 units twice a day, Isordil 60 mg daily, lisinopril 40 mg twice a day, Ativan 0.5 mg daily and 1 mg at nighttime, and Restoril 15 mg at bedtime p.r.n. ALLERGIES: INCLUDE BENADRYL, LEVAQUIN, AND PENICILLIN, THOUGH THE FAMILY IS UNSURE OF HER RESPONSE. SOCIAL HISTORY: Remarkable for no tobacco, alcohol, or illicit drug use. She is and had 7 children, 4 of whom are alive. FAMILY HISTORY: Remarkable for mother with dementia and several siblings with diabetes. REVIEW OF SYSTEMS: 14 systems reviewed. Pertinent positives as noted above. PHYSICAL EXAMINATION: GENERAL: This is an obese, elderly female, currently unresponsive with eyes open, on the mechanical ventilator. VITAL SIGNS: Temperature is 97.8, respiratory rate is 12, saturations are 100%. Pulse is 84 and blood pressure is 125/104. HEENT: Normocephalic, atraumatic. Pupils are small and fixed. There is negative doll's eyes. There are somewhat muddy sclerae. She has a nasogastric tube in position. She has an orotracheal tube in position. There is narrowing of the posterior pharyngeal space. NECK: Without any palpable lymphadenopathy or thyromegaly. CHEST: The patient has decreased breath sounds. LUNGS: Otherwise clear with no wheezes, rhonchi, or crackles noted. CARDIOVASCULAR: Jugular venous pulsations are difficult to elicit. She has 1+ carotid upstrokes. No obvious bruit. She has a distant regular S1, S2 with no clear murmur, S3, S4. Peripheral pulses are diminished. ABDOMEN: Obese, soft. There are hypoactive bowel sounds. There is no palpable hepatosplenomegaly or masses. EXTREMITIES: Demonstrate a fistula in her left upper extremity. There is no cyanosis, clubbing, or palpable cords. NEUROLOGIC: The patient is unresponsive with negative doll's eyes, negative response to noxious stimuli, and negative light response around pupils which are actually small. LABORATORY DATA: Blood gas here: After ventilator adjustments, pH 7.39, pCO2 of 33, pO2 of 532. CBC: Hemoglobin is 10.1, hematocrit 32.1, platelet count was 221,000, and white blood cell count is 8.8. INR is 1.3. PTT is 23.3. Initial blood gas was pH 7.11, pCO2 of 57, pO2 of 80 on 100%. Chemistry: Sodium 141, potassium 3.9, chloride 99, bicarbonate 19, BUN 54, creatinine 10.4. Glucose 271. Magnesium is 2.1. Troponin is less than 0.02. Consultation Report [address] [place]. [address] NAME: EDWARD PADRON : 42 STATUS : ADM IN [facility]#: [id number] AGE: 76 ADM/REG DATE : 01/21/17 MR#: [id number] REPORT SERV DATE: 01/21/17 DICTATED BY: MONIKA UGALDE IV DATE: 01/21/17 REPORT STATUS : Draft TRANSCRIBED BY: JD DATE: 01/21/17 EKG demonstrates no acute ischemic changes. Chest x-ray demonstrates prominent cardiac silhouette with bilateral perihilar infiltrates consistent with pulmonary edema. ASSESSMENT AND PLAN: 1. Respiratory. We will adjust the mechanical ventilator, decrease tidal volume to 500 and increase the rate to 12 initially and then decrease to 11 based on the blood gas. Bronchodilator protocol has been ordered. We will adjust FiO2 to maintain saturation 90%-96% range. X-ray will be obtained now after the PICC line and daily while on the mechanical ventilator. Current film is most consistent with pulmonary edema. 2. Neurologic. Concern about significant brain injury based on the duration of downtime and length of resuscitation. 24-hour hypothermia protocol has been ordered. She will be given multivitamin daily. Ammonia and B12 level will be obtained. 3. Infectious disease. I doubt an infectious process. The procalcitonin level will be added to blood in the lab. We will send blood cultures and tracheal aspirate, Gram stain and culture, no empiric antibiotics. 4. Cardiovascular. Serial troponins will be obtained. EKG demonstrates no ischemic changes. Cardene will be given for blood pressure to keep it in the 150-170 range. 5. Endocrinologic. Hemoglobin A1c will be obtained. IV insulin sliding scale changed to subcu. When it is under better control, thyroid functions will be obtained. 6. Hematologic. Heparin subcutaneous for deep vein thrombosis prophylaxis. 7. Gastrointestinal. Protonix IV for gastrointestinal prophylaxis, n.p.o. for now. Liver panel will be obtained. 8. Renal. Dialysis per Nephrology. Phosphate level will be added to blood in the lab. 9. Social. I had a long talk with the family. They are aware of the likelihood of significant anoxic brain injury, however, wish the patient to be a full code. Thank you for consulting us. TIME SEEN: 0735 hours to 0840 hours, 65 minutes of critical care time. KAYLA/JD Monika Ugalde IV, M.D. / [id number] CC: Cristino Dowling MD
--- NOTE | ~2017-01-21 | HP ---
History And Physical [facility] [address] [place]. [address] NAME: EDWARD PADRON : 42 STATUS : ADM IN PAT#: [id number] AGE: 76 ADM/REG DATE : 01/21/17 MR#: [id number] REPORT SERV DATE: 01/21/17 DICTATED BY: PATRICK POST DATE: 01/21/17 REPORT STATUS : Draft TRANSCRIBED BY: MODL DATE: 01/21/17 DATE OF ADMISSION: 01/21/2017 NEPHROLOGY HISTORY AND PHYSICAL INDICATION FOR HOSPITALIZATION: Outpatient respiratory arrest. HISTORY OF PRESENT ILLNESS: Ms Padron is a 76-year-old female, who dialyzes chronically on Saturday, Saturday, Saturday at [address] by left upper extremity AV fistula. She was recently hospitalized at [facility] for congestive heart failure between 12/31/2016 and 01/03/2017 with lowering her dry weight and stabilization of her respiratory status. She developed apparently shortness of breath at home, collapsed and CPR was initiated at home. EMS arrived within 10 minutes, and she received approximately 30 minutes of ACLS, CPR and was intubated on the scene. She is presently on Hypothermia Protocol. Blood pressure has been extremely labile with pressures of 228/91 at the time of dictation. She likely has anoxic brain injury. Family at this time wants all measures performed. PAST MEDICAL HISTORY: End-stage renal disease, dialyzing Saturday, Saturday, and Saturday by left upper extremity AV fistula; history of recurrent pulmonary edema, volume overload; history of hypercapnic respiratory failure with acidosis; anemia; hypertension; type 2 diabetes mellitus; spinal stenosis with underlying osteoarthritis; obstructive sleep apnea; chronic diastolic congestive heart failure; history of colon polyps; history of remote UTI; dyslipidemia; and depression. SOCIAL HISTORY: The patient is currently . No use of alcohol, tobacco products, or illicit drugs. Her son recently per chart. FAMILY HISTORY: Mother at 90s of unknown cause. Father of unknown cause. History was positive for hypertension, no end-stage renal disease, or cardiac disease per chart. ALLERGIES: PER CHART; CODEINE, BENADRYL, PENICILLIN, MORPHINE, NONSTEROIDAL ANTIINFLAMMATORY DRUGS, CELEBREX, AND HYDROCODONE. HOME MEDICATIONS: Amlodipine, Bumex, calcium carbonate, Neurontin, Levemir insulin, Imdur, lisinopril, Sensipar, Ativan, Restoril, and hydrocodone. REVIEW OF SYSTEMS: Unable to obtain. The patient is on vent and sedated. PHYSICAL EXAMINATION: HEENT: Eye, no scleral icterus. Pupils are sluggishly reactive. Nares patent. Mouth, ET and OG tube in place. NECK: No thyromegaly, masses, or bruits. CHEST/LUNGS: Lateral crackles. No wheezes. CARDIAC: Regular rate and rhythm. Questionable 1/6 systolic ejection murmur. No gallop. No rub. History And Physical [address] [place]. [address] NAME: EDWARD PADRON : 42 STATUS : ADM IN [facility]#: [id number] AGE: 76 ADM/REG DATE : 01/21/17 MR#: [id number] REPORT SERV DATE: 01/21/17 DICTATED BY: PATRICK POST DATE: 01/21/17 REPORT STATUS : Draft TRANSCRIBED BY: JD DATE: 01/21/17 ABDOMEN: Supple. Normoactive bowel sounds. Nontender. No hepatosplenomegaly. BREAST/PELVIC/RECTAL: Not performed. EXTREMITIES: No lower extremity edema. No calf tenderness. DERMIS: No rash. No skin lesions. NEUROLOGIC: Unable to evaluate due to sedation. MUSCULOSKELETAL: No deformity. IMPRESSION: 1. Outpatient respiratory arrest with prolonged CPR, currently on ventilator. 2. Probable anoxic brain injury. 3. End-stage renal disease, dialyzes Saturday, Saturday, and Saturday at [address] by left upper extremity AV fistula. 4. Accelerated hypertension. 5. Chronic diastolic congestive heart failure. 6. Type 2 diabetes mellitus. 7. Obstructive sleep apnea. 8. Spinal stenosis. 9. Depression. PLAN: 1. Critical Care consult. 2. Cardene for BP control. 3. Hemodialysis today. 4. Probable Neurology evaluation. CG/JD Patrick Post M.D. / [id number] CC: Cristino Dowling MD
--- NOTE | ~2017-01-21 | DS ---
Discharge Summary [facility] [address] [place]. [address] NAME: EDWARD PADRON : 42 STATUS : DIS IN PAT#: [id number] AGE: 76 ADM/REG DATE : 01/21/17 MR#: [id number] REPORT SERV DATE: 02/05/17 DICTATED BY: PATRICK POST DATE: 02/05/17 REPORT STATUS : Draft TRANSCRIBED BY: JD DATE: 02/05/17 Data Collection from hospitalization DISCHARGE DIAGNOSES: 1. Anoxic brain injury. 2. Respiratory arrest. 3. End-stage renal disease. 4. Hypertension. 5. Type 2 diabetes mellitus. 6. Chronic diastolic congestive heart failure. 7. Obstructive sleep apnea. 8. Anemia. 9. Osteoarthritis. 10.Dyslipidemia. 11.Depression. CONSULTATIONS: Dr. Abelino Ugalde, Dr. Ray Will. PROCEDURES PERFORMED: 1. CT scan of the brain without contrast, 01/22/2017. 2. Electroencephalogram, 01/23/2017. DISPOSITION: [facility]. HOSPITAL COURSE: This is a 76-year-old female, who dialyzes on Mondays, Wednesdays, and Fridays via a left upper extremity AV fistula. She had recently been hospitalized at [facility] for congestive heart failure between 12/31/2016 and 01/03/2017 with lowering her dry weight and stabilization of her respiratory status. She developed apparent shortness of breath at home and collapsed. CPR was initiated at home. EMS arrived within 10 minutes and she received approximately 30 minutes of ACLS, CPR and was intubated on the scene. She was presently on hypothermia protocol. Blood pressure has been extremely labile with pressures of 228/91 at the time of this dictation. It was felt that she likely had an anoxic brain injury. Her family at this time wanted all measures performed. She was admitted to the hospital for further evaluation and treatment. Upon admission, Cardene was started for blood pressure control. Hemodialysis therapy was going to be performed. She was seen in consultation by Dr. Abelino Ugalde. In the past, the patient had been diagnosed with obstructive sleep apnea, however, had been intolerant of CPAP therapy. Chest x-ray demonstrated prominent cardiac silhouette with bilateral perihilar infiltrates consistent with pulmonary edema. Her mechanical ventilator was going to be adjusted. Bronchodilator protocol was ordered. I was concerned about significant brain injury based on the duration of down time and the length of resuscitation. A 24-hour hypothermia protocol was ordered. She was going to be given a multivitamin daily. Ammonia and B12 level were going to be obtained. Procalcitonin level was going to be added. Blood cultures were going to be obtained as well as a tracheal aspirate, Gram stain, and culture. No empiric antibiotics were going to begin at this time. Serial troponins would be obtained. EKG demonstrated no ischemic changes. Hemoglobin A1c was going to be checked as well as IV insulin sliding scale. Thyroid functions were going to be checked. Heparin was Discharge Summary [id number] [facility] [place]. [address] NAME: EDWARD PADRON : 42 STATUS : DIS IN PAT#: [id number] AGE: 76 ADM/REG DATE : 01/21/17 MR#: [id number] REPORT SERV DATE: 02/05/17 DICTATED BY: PATRICK POST DATE: 02/05/17 REPORT STATUS : Draft TRANSCRIBED BY: JD DATE: 02/05/17 going to begin for DVT prophylaxis. IV Protonix was going to be started for GI prophylaxis. She was being held n.p.o. for now. A liver panel was going to be obtained. Phosphate level was going to be added. The patient was also seen by Dr. Ray Will, regarding encephalopathy post cardiac arrest. The patient was currently undergoing hypothermia protocol and was on fentanyl and rocuronium. It was recommended that muscle paralytics to be discontinued as well as fentanyl or any other sedation after hypothermia protocol. A CT scan of the brain without contrast was requested after the patient is rewarmed. EEG was also going to be performed. A PICC line was inserted. Hemodialysis therapy was performed. The following day, the patient was on the ventilator. Coreg and amlodipine were being provided. She was still receiving Cardene. CT scan of the brain without contrast was performed. On the , she remained on the ventilator. Hemodialysis therapy was performed. Electroencephalogram was obtained. This was a markedly abnormal EEG characterized by the presence of severe depression of cerebral activity. There was no evidence of paroxysmal epileptiform activity seen. No significant asymmetry of her activity was noted. This EEG is compatible with the presence of severe anoxic encephalopathy. On the , the patient was still on the ventilator. There were few lateral crackles in her lungs. Apnea test was going to be performed. She was now off Cardene. There was no respiratory effort above the vent. The patient's family requested another conference. On 01/25/2017, the patient remained unresponsive without sedation. She was still on the ventilator. She had bilateral rhonchi. The patient was felt to have anoxic brain injury after respiratory arrest. Creatinine level was 8.78, white count was 22.5. We were awaiting a family decision. The patient's family did not think she would want continued support. Plans were being made for the patient to be extubated with a DNR code status. The patient's condition continued to decline and later that afternoon, she was found without blood pressure, pulse, or respirations. She was pronounced at 1719 hours and released to the above-mentioned home. Information collected by: Giana Sam I submit the above information as my discharge summary. TG/MODL Patrick Post M.D. / [id number] CC: MD Ray Holden MD
[~2017-01-21 07:19] MED LIST changes: +*UNABLE1
[2017-01-21 07:52] LABS: BE (BASE EXCESS) -4.5 MEQ/L (0 +/- 2.5); CARBOXYHEMOGLOBIN 0.3 % (0-3); HCO3 (ACTUAL BICARBONATE) 19.6 MEQ/L (23-27); HEMOBLOGIN CONTENT 11.9 G/DL (12-16); INSTRUMENT SERIAL # 8083; METHEMOGLOBIN 0.2 % (0-3); MODE CMV; O2 CONTENT 18.1 VOL% (18-24); OPERATOR ID 18642; PCO2 (CO2 TENSION) 33 MMHG (35-45); PO2 (O2 TENSION) 532 MMHG (79-93); SAMPLE Arterial; pH 7.39 (7.37-7.43)
[2017-01-21 07:53] LABS: ALLENS TEST Pos; TIDAL VOLUME 500 ML
[2017-01-21] MEDS ORDERED: ASAB PO (12:32)
[2017-01-21] MEDS ORDERED: COREG25 PO (12:32)
[2017-01-21] MEDS ORDERED: BUM2 PO (12:32)
[2017-01-21] MEDS ORDERED: NORV5 PO (12:32)
[2017-01-21] MEDS ORDERED: ATV.5 PO (12:32)
[2017-01-21] MEDS ORDERED: DIOVAN320 MG PO (12:38)
[2017-01-21] MEDS ORDERED: IMDUR60 PO (12:38)
[2017-01-21] MEDS ORDERED: NEUR100 PO (12:39)
[2017-01-21] MEDS ORDERED: LISINOPRIL40 MG PO (12:39)
[2017-01-21] MEDS ORDERED: LEVEMIR SC (12:39)
[2017-01-21] MEDS ORDERED: REST15 PO (12:40)
[2017-01-21] MEDS ORDERED: SENSIPAR30 M1 PO (12:40)
[2017-01-21] MEDS ORDERED: TUMSROLL PO (12:41)
[2017-01-21] MEDS ORDERED: CARD90 PO (12:41)
[2017-01-21 12:53] LABS: GLYCOHEMOGLOBIN (HbA1c) 7.3 % (4.7-6.1)
[2017-01-21 13:13] LABS: ALBUMIN 2.8 G/DL (3.5-5.0); ALKALINE PHOSPHATASE 135 U/L (45-117); DIRECT BILIRUBIN 0.1 MG/DL (0.0-0.4); FREE T4 1.31 NG/DL (0.76-1.46); INDIRECT BILIRUBIN(NOT ORDER) 0.3 MG/DL (0.1-0.9); SGOT(AST) 63 U/L (5-40); SGPT(ALT) 55 U/L (5-65); TOTAL BILIRUBIN 0.4 MG/DL (0-1.2); TOTAL PROTEIN 6.9 G/DL (6.0-8.5); TROPONIN I <0.02 NG/ML (<0.05)
[2017-01-21 13:56] LABS: PROCALCITONIN 4.18 ng/mL (<0.5)
[2017-01-22 03:53] LABS: BASOPHILS 0 %; BASOPHILS ABSOLUTE 0.01 10/3/uL (0.0-0.16); EOSINOPHILS 0 %; HEMATOCRIT 35.2 % (36.0-48.0); HEMOGLOBIN 11.7 g/dL (12.0-16.0); IMMATURE GRANULOCYTES 0.4 %; IMMATURE GRANULOCYTES ABSOLUTE 0.08 10/3/uL (0.0-0.11); LYMPHOCYTES 4.7 %; LYMPHOCYTES ABSOLUTE 0.95 10/3/uL (0.67-4.30); MEAN CORPUSCULAR HEMOGLOB 29.5 pg (26.0-34.0); MEAN PLATELET VOLUME 10.1 fL (9.2-13.0); MONOCYTES 4.4 %; MONOCYTES ABSOLUTE 0.88 10/3/uL (0.21-1.20); NEUTROPHILS 90.5 %; NEUTROPHILS ABSOLUTE 18.19 10/3/uL (2.02-8.40); PLATELET COUNT 192 10/3/uL (150-400); RBC DISTRIBUTION WIDTH 13.1 % (12.0-16.0); RED CELL COUNT 3.96 10/6/uL (4.0-5.6)
[2017-01-22 04:08] LABS: BUN (BLOOD UREA NITROGEN) 33 MG/DL (6-23); CALCIUM, SERUM 9.2 MG/DL (8.5-10.4); CHLORIDE, SERUM 103 MMOL/L (96-112); CO2 (CARBON DIOXIDE) 29 MMOL/L (24-34); CREATININE 6.97 MG/DL (0.55-1.02); GFR AFRICAN AMERICAN 6 ML/MIN (>=60); GFR NON AFRICAN AMERICAN 5 ML/MIN (>=60); GLUCOSE, SERUM 154 MG/DL (60-99); PHOSPHORUS, SERUM 4.8 MG/DL (2.5-4.5); POTASSIUM, SERUM 3.9 MMOL/L (3.5-5.3); SODIUM, SERUM 140 MMOL/L (135-148); TROPONIN I <0.02 NG/ML (<0.05)
[2017-01-22 04:10] LABS: WHITE BLOOD CELLS 20.1 10/3/uL (4.5-10.5)
[2017-01-22 04:11] LABS: MANUAL DIFF NO %; MEAN CORPUS HGB CONC 33.2 g/dL (32.0-36.0); MEAN CORPUSCULAR VOLUME 88.9 fL (80-100)
[2017-01-22 04:45] LABS: ALLENS TEST Pos; BE (BASE EXCESS) -1.2 MEQ/L (0 +/- 2.5); CARBOXYHEMOGLOBIN 0.5 % (0-3); HCO3 (ACTUAL BICARBONATE) 22.7 MEQ/L (23-27); HEMOBLOGIN CONTENT 12.1 G/DL (12-16); INSTRUMENT SERIAL # 8083; METHEMOGLOBIN 0.1 % (0-3); MODE CMV; O2 CONTENT 17.1 VOL% (18-24); OPERATOR ID 35390; PCO2 (CO2 TENSION) 36 MMHG (35-45); PO2 (O2 TENSION) 189 MMHG (79-93); SAMPLE Arterial; TIDAL VOLUME 500 ML; pH 7.42 (7.37-7.43)
[2017-01-22 12:29] LABS: A/G RATIO 0.7 (0.7-1.9); ALKALINE PHOSPHATASE 134 U/L (45-117); GLOBULIN 4.5 G/DL (2.5-4.1); PREALBUMIN 17.2 MG/DL (17.0-43.0); SGOT(AST) 52 U/L (5-40); SGPT(ALT) 54 U/L (5-65); TOTAL BILIRUBIN 0.5 MG/DL (0-1.2); TOTAL PROTEIN 7.5 G/DL (6.0-8.5)
[2017-01-23 04:50] LABS: BASOPHILS 0 %; BASOPHILS ABSOLUTE 0.01 10/3/uL (0.0-0.16); EOSINOPHILS 0 %; HEMATOCRIT 32.6 % (36.0-48.0); HEMOGLOBIN 10.7 g/dL (12.0-16.0); IMMATURE GRANULOCYTES 0.4 %; IMMATURE GRANULOCYTES ABSOLUTE 0.08 10/3/uL (0.0-0.11); LYMPHOCYTES 5.4 %; LYMPHOCYTES ABSOLUTE 1.17 10/3/uL (0.67-4.30); MEAN CORPUS HGB CONC 32.8 g/dL (32.0-36.0); MEAN CORPUSCULAR HEMOGLOB 29.1 pg (26.0-34.0); MEAN CORPUSCULAR VOLUME 88.6 fL (80-100); MEAN PLATELET VOLUME 10.6 fL (9.2-13.0); MONOCYTES 5.5 %; MONOCYTES ABSOLUTE 1.19 10/3/uL (0.21-1.20); NEUTROPHILS 88.7 %; NEUTROPHILS ABSOLUTE 19.21 10/3/uL (2.02-8.40); PLATELET COUNT 200 10/3/uL (150-400); RBC DISTRIBUTION WIDTH 13.4 % (12.0-16.0); RED CELL COUNT 3.68 10/6/uL (4.0-5.6); WHITE BLOOD CELLS 21.7 10/3/uL (4.5-10.5)
[2017-01-23 04:56] LABS: MANUAL DIFF NO %
[2017-01-23 05:05] LABS: ALBUMIN 2.7 G/DL (3.5-5.0); CALCIUM, SERUM 8.7 MG/DL (8.5-10.4); CHLORIDE, SERUM 104 MMOL/L (96-112); POTASSIUM, SERUM 4.5 MMOL/L (3.5-5.3); SODIUM, SERUM 140 MMOL/L (135-148)
[2017-01-23 05:24] LABS: BUN (BLOOD UREA NITROGEN) 46 MG/DL (6-23); CO2 (CARBON DIOXIDE) 23 MMOL/L (24-34); CREATININE 8.91 MG/DL (0.55-1.02); GFR AFRICAN AMERICAN 5 ML/MIN (>=60); GFR NON AFRICAN AMERICAN 4 ML/MIN (>=60); GLUCOSE, SERUM 259 MG/DL (60-99); PHOSPHORUS, SERUM 5.8 MG/DL (2.5-4.5)
[2017-01-24 04:07] LABS: BASOPHILS 0.1 %; BASOPHILS ABSOLUTE 0.02 10/3/uL (0.0-0.16); EOSINOPHILS 0 %; HEMATOCRIT 32.8 % (36.0-48.0); HEMOGLOBIN 10.5 g/dL (12.0-16.0); IMMATURE GRANULOCYTES 0.7 %; IMMATURE GRANULOCYTES ABSOLUTE 0.15 10/3/uL (0.0-0.11); LYMPHOCYTES 5.9 %; LYMPHOCYTES ABSOLUTE 1.35 10/3/uL (0.67-4.30); MEAN CORPUSCULAR HEMOGLOB 28.7 pg (26.0-34.0); MEAN CORPUSCULAR VOLUME 89.6 fL (80-100); MEAN PLATELET VOLUME 10.9 fL (9.2-13.0); MONOCYTES 9.4 %; MONOCYTES ABSOLUTE 2.15 10/3/uL (0.21-1.20); NEUTROPHILS 83.9 %; NEUTROPHILS ABSOLUTE 19.23 10/3/uL (2.02-8.40); PLATELET COUNT 193 10/3/uL (150-400); RBC DISTRIBUTION WIDTH 13.6 % (12.0-16.0); RED CELL COUNT 3.66 10/6/uL (4.0-5.6); WHITE BLOOD CELLS 22.9 10/3/uL (4.5-10.5)
[2017-01-24 04:08] LABS: MANUAL DIFF NO %
[2017-01-24 04:17] LABS: ALBUMIN 3.4 G/DL (3.5-5.0); BUN (BLOOD UREA NITROGEN) 40 MG/DL (6-23); CALCIUM, SERUM 9.3 MG/DL (8.5-10.4); CHLORIDE, SERUM 100 MMOL/L (96-112); CO2 (CARBON DIOXIDE) 28 MMOL/L (24-34); CREATININE 6.75 MG/DL (0.55-1.02); GFR AFRICAN AMERICAN 6 ML/MIN (>=60); GFR NON AFRICAN AMERICAN 5 ML/MIN (>=60); GLUCOSE, SERUM 293 MG/DL (60-99); PHOSPHORUS, SERUM 4.3 MG/DL (2.5-4.5); POTASSIUM, SERUM 4.3 MMOL/L (3.5-5.3); SODIUM, SERUM 139 MMOL/L (135-148)
[2017-01-24 10:01] LABS: ALLENS TEST Pos; BE (BASE EXCESS) 0.8 MEQ/L (0 +/- 2.5); CARBOXYHEMOGLOBIN 0.4 % (0-3); HCO3 (ACTUAL BICARBONATE) 24.8 MEQ/L (23-27); HEMOBLOGIN CONTENT 11.4 G/DL (12-16); INSTRUMENT SERIAL # 8083; METHEMOGLOBIN 0.2 % (0-3); MODE CMV; O2 CONTENT 16.1 VOL% (18-24); OPERATOR ID 18801; PCO2 (CO2 TENSION) 38 MMHG (35-45); PO2 (O2 TENSION) 150 MMHG (79-93); SAMPLE Arterial; TIDAL VOLUME 500 ML; pH 7.44 (7.37-7.43)
[2017-01-25 04:14] LABS: BASOPHILS 0.1 %; BASOPHILS ABSOLUTE 0.02 10/3/uL (0.0-0.16); EOSINOPHILS 0.1 %; EOSINOPHILS ABSOLUTE 0.02 10/3/uL (0.0-0.53); HEMATOCRIT 31.5 % (36.0-48.0); HEMOGLOBIN 10.4 g/dL (12.0-16.0); IMMATURE GRANULOCYTES 0.5 %; IMMATURE GRANULOCYTES ABSOLUTE 0.11 10/3/uL (0.0-0.11); LYMPHOCYTES 6.6 %; LYMPHOCYTES ABSOLUTE 1.48 10/3/uL (0.67-4.30); MEAN CORPUSCULAR VOLUME 87.7 fL (80-100); MONOCYTES 7.3 %; MONOCYTES ABSOLUTE 1.64 10/3/uL (0.21-1.20); NEUTROPHILS 85.4 %; NEUTROPHILS ABSOLUTE 19.24 10/3/uL (2.02-8.40); PLATELET COUNT 180 10/3/uL (150-400); RBC DISTRIBUTION WIDTH 13.5 % (12.0-16.0); RED CELL COUNT 3.59 10/6/uL (4.0-5.6); WHITE BLOOD CELLS 22.5 10/3/uL (4.5-10.5)
[2017-01-25 04:19] LABS: MANUAL DIFF NO %
[2017-01-25 04:26] LABS: ALBUMIN 2.9 G/DL (3.5-5.0); CALCIUM, SERUM 9.5 MG/DL (8.5-10.4); CHLORIDE, SERUM 100 MMOL/L (96-112); CO2 (CARBON DIOXIDE) 26 MMOL/L (24-34); PHOSPHORUS, SERUM 4.9 MG/DL (2.5-4.5); POTASSIUM, SERUM 4.1 MMOL/L (3.5-5.3); SODIUM, SERUM 141 MMOL/L (135-148)
[2017-01-25 04:28] LABS: BUN (BLOOD UREA NITROGEN) 70 MG/DL (6-23); CREATININE 8.78 MG/DL (0.55-1.02); GFR AFRICAN AMERICAN 5 ML/MIN (>=60); GFR NON AFRICAN AMERICAN 4 ML/MIN (>=60); GLUCOSE, SERUM 181 MG/DL (60-99)
== END 2017-01-25 19:00 | disposition expired | DRG 207 ==
LOC: MIC 07:19
PROVIDERS: Internal Medicine Critical Care Medicine; Internal Medicine Nephrology
PROC: 5A1955Z Respiratory Ventilation, Greater than 96 Consecutive Hours (ICD-10-PCS; principal; 2017-01-21)
PROC: 5A1D60Z (ICD-10-PCS; 2017-01-21)
PROC: 02HV33Z Insertion of Infusion Device into Superior Vena Cava, Percutaneous Approach (ICD-10-PCS; 2017-01-21)
PROC: 4A02X4A Measurement of Cardiac Electrical Activity, Guidance, External Approach (ICD-10-PCS; 2017-01-21)
PROC: 3E0G76Z Introduction of Nutritional Substance into Upper GI, Via Natural or Artificial Opening (ICD-10-PCS; 2017-01-22)
DX: J96.00 Acute respiratory failure, unspecified whether with hypoxia or hypercapnia (principal); I46.9 Cardiac arrest, cause unspecified; I13.2 Hypertensive heart and chronic kidney disease with heart failure and with stage 5 chronic kidney disease, or end stage renal disease; G93.1 Anoxic brain damage, not elsewhere classified; N18.6 End stage renal disease; I50.32 Chronic diastolic (congestive) heart failure; I13.0 Hypertensive heart and chronic kidney disease with heart failure and stage 1 through stage 4 chronic kidney disease, or unspecified chronic kidney disease; E11.22 Type 2 diabetes mellitus with diabetic chronic kidney disease; D63.1 Anemia in chronic kidney disease; G47.33 Obstructive sleep apnea (adult) (pediatric); Z66 Do not resuscitate; Z51.5 Encounter for palliative care; Z99.2 Dependence on renal dialysis; F32.9 Major depressive disorder, single episode, unspecified; F41.9 Anxiety disorder, unspecified; Z88.5 Allergy status to narcotic agent; Z88.0 Allergy status to penicillin; Z88.1 Allergy status to other antibiotic agents; Z88.8 Allergy status to other drugs, medicaments and biological substances; Z79.899 Other long term (current) drug therapy
CPT/HCPCS: 31720; 36569; 36600; 70450; 71010; 74000; 80048; 80053; 80069; 80076; 82140; 82607; 82805; 82962; 83036; 83735; 83880; 84100; 84134; 84145; 84439; 84443; 84484; 85025; 85610; 85730; 87040; 87070; 87205; 87641; 92950; 94002; 94003; 94640; 95816; 96374; 99291; A9270-GY; C1751; C9113; G0257; J0360; J1170; J3010; P9047